=== PATIENT | male | born 1990 | race Caucasian/White ===

== ENCOUNTER 2021-03-21 03:47 | Day surgery (SDC) | payer MEDICAID ==
[~2021-03-21] VITALS: Ht 177.8 cm; Wt 78.9 kg
--- NOTE | 2021-03-21 04:25 | NUR ---
PT C/O ABDOMINAL PAIN SINCE 1 YEAR AGO. PT STATES IT HAPPENS MOST TIMES AT NIGHT. REPORTS SOME NAUSEA AND VOMITTING SOME NIGHTS NUT NOT TONIGHT. DENIES FEVER/ CHILL, CP, SOB ATTACHED TO [place], VSS. NADN. CHANGED INTO GOWN, BED IN LOW, CALL LIGHT ON LAP. RAILS ENGAGED.
[2021-03-21] MEDS ORDERED: MAALOX/HYOSCYAMINE/LIDOCAINE 45 ML BTL ONE (05:13)
--- NOTE | 2021-03-21 05:14 | NUR ---
PT OFF UNIT IN IMAGING
[2021-03-21] MEDS ORDERED: MAALOX/HYOSCYAMINE/LIDOCAINE 45 ML BTL PO ONE (05:30)
--- NOTE | 2021-03-21 05:55 | NUR ---
Note luca in EDM - 03/21/21 at 0555 by [email or web address] Patient is resting comfortably in bed. PT ON HER PHONE LAUGHING. Bed in lowest, rails engaged, call light on lap. Vital Signs within normal limits. TM.
[2021-03-21 06:10] LABS: BASOPHILS % (AUTO) 1 % (0-1); EOSINOPHILS % (AUTO) 2 % (1-7); LYMPHOCYTES % (AUTO) 31 % (22-44); MEAN CORPUSCULAR HEMOGLOBIN 32.1 pg (27.5-34.5); MEAN CORPUSCULAR HGB CONC 34.3 g/dL (33.2-36.2); MEAN PLATELET VOLUME 9.6 fL (7.4-10.4); MONOCYTES % (AUTO) 9 % (2-9); NEUTROPHILS % (AUTO) 58 % (42-75); PLATELET COUNT 254 x10^3/uL (130-400); RED BLOOD COUNT 4.99 x10^6/uL (4.38-5.82); RED CELL DISTRIBUTION WIDTH 14.3 % (9.4-14.8)
[2021-03-21 06:12] LABS: ALANINE AMINOTRANSFERASE 24 U/L (12-78); ALBUMIN 3.2 g/dL (3.4-5.0); ANION GAP 4 mmol/L (5-15); CALCIUM 8.3 mg/dL (8.5-10.1); CHLORIDE 111 mmol/L (98-107); CREATININE 0.86 mg/dL (0.7-1.3)
[2021-03-21 06:14] LABS: ALKALINE PHOSPHATASE 82 U/L (45-117); BILIRUBIN,TOTAL 0.3 mg/dL (0.2-1.0); TOTAL PROTEIN 7.1 g/dL (6.4-8.2)
--- NOTE | 2021-03-21 06:40 | NUR ---
LAST TIME PT ATE WAS 0030 THIS AM
[2021-03-21 06:41] VITALS: BP 146/94
[2021-03-21] MEDS ORDERED: MORPHINE SULFATE 4 MG/ML, 1ML ONE (06:46)
--- NOTE | 2021-03-21 06:48 | NUR ---
PT AMBULATED TO BATHROOM AND BACK WITH STEADY GAIT. ATTACHED TO MONITORS, VSS NADN. WCTM
--- NOTE | 2021-03-21 06:54 | NUR ---
GAVE REPORT TO FLORECITA DAVIES. TRANSFER OF CARE
[2021-03-21] MEDS ORDERED: SODIUM CHLORIDE 0.9% 1,000ML IVBOLUS ONE (07:00)
[2021-03-21] MEDS ORDERED: CEFOTETAN PMX 1GM/50ML 50 ML IVPB ONE (07:00)
[2021-03-21] MEDS ORDERED: morphine SULFATE 10 MG/ML, 1ML IVPush ONE (07:00)
[2021-03-21] MEDS ORDERED: BUPIVACAINE/PF 0.5% ONE (08:26)
[2021-03-21] MEDS ORDERED: EPINEPHRINE 1 MG/ML, 1ML ONE (08:26)
[2021-03-21] MEDS ORDERED: FENTANYL PF 100 MCG/2ML ONE (09:29)
[2021-03-21] MEDS ORDERED: MIDAZOLAM 1 MG/ML, 2ML ONE (09:29)
--- NOTE | 2021-03-21 09:35 | NUR ---
0845: Pt to go to OR, undressed and belongings in bag. NPO, Report to OR nurse.
[2021-03-21] MEDS ORDERED: DEXAMETHASONE 4 MG/ML, 5ML ONE (10:05)
[2021-03-21] MEDS ORDERED: NEOSTIGMINE 1 MG/ML, 10ML ONE (10:05)
[2021-03-21] MEDS ORDERED: CEFAZOLIN 1,000 MG ONE (10:05)
[2021-03-21] MEDS ORDERED: ROCURONIUM 10MG/ML,5ML ONE (10:05)
[2021-03-21] MEDS ORDERED: ONDANSETRON 2MG/ML, 2ML ONE (10:05)
[2021-03-21] MEDS ORDERED: MEPERIDINE/PF 50 MG/ML ONE (10:05)
[2021-03-21] MEDS ORDERED: PROPOFOL 10 MG/ML, 20ML ONE (10:05)
[2021-03-21] MEDS ORDERED: GLYCOPYRROLATE 0.2MG/1ML, 5ML ONE (10:05)
[2021-03-21] MEDS ORDERED: SUCCINYLCHOLINE 20 MG/ML, 10ML ONE (10:05)
[2021-03-21] MEDS ORDERED: BUPIVACAINE/PF-EPI 0.5% 1:200K INFIL ONE (10:09)
[2021-03-21] MEDS ORDERED: ACETAMINOPHEN 325 MG TABLET PO PRN (10:30)
[2021-03-21] MEDS ORDERED: LORazepam 2 MG/ML, 1ML IVPush PRN (10:30)
[2021-03-21] MEDS ORDERED: hydrALAzine 20 MG/ML, 1ML IV PRN (10:30)
[2021-03-21] MEDS ORDERED: METOPROLOL 1 MG/ML, 5ML IV PRN (10:30)
[2021-03-21] MEDS ORDERED: METHOCARBAMOL 1,000 MG in DEXTROSE 5% 100 ML IV PRN (10:30)
[2021-03-21] MEDS ORDERED: LABETALOL 5MG/ML, 20ML IV PRN (10:30)
[2021-03-21] MEDS ORDERED: HYDROmorphone 1 MG/ML, 1ML INJ IVPush PRN (10:30)
[2021-03-21] MEDS ORDERED: FENTANYL PF 100 MCG/2ML IV PRN (10:30)
[2021-03-21] MEDS ORDERED: PROMETHAZINE 25 MG/ML, 1ML IVPush PRN (10:30)
[2021-03-21] MEDS ORDERED: PROMETHAZINE 25 MG SUPP PR PRN (10:30)
[2021-03-21] MEDS ORDERED: ONDANSETRON 2MG/ML, 2ML IVPush PRN (10:30)
[2021-03-21] MEDS ORDERED: OXYcodone 5 MG/5 ML ORAL.SOL UDC PO PRN (10:30)
[2021-03-21] MEDS ORDERED: ALBUTEROL SULFATE 2.5 MG/3 ML NPPB PRN (10:30)
[2021-03-21] MEDS ORDERED: OXYC-302 PO (10:40)
[2021-03-21] MEDS ORDERED: OXYcodone 5 MG/5 ML ORAL.SOL UDC ONE (11:13)
[2021-03-21] MEDS ORDERED: ONDANSETRON 4 MG TABLET PO PRN (12:30)
[2021-03-21] MEDS ORDERED: OXYcodone/APAP 5/325MG TABLET PO PRN (12:30)
== END 2021-03-21 17:25 | disposition home or self-care (01) ==
LOC: ED 07:17 → EDIP 07:27 → OUT 07:27 → UNDOADMIN 07:27 → EDIP 11:50 → 4NW 11:50 → EDSTATUS 16:18 → UNDODISIN 17:25 → OUT 17:25
PROVIDERS: ATTEND Emergency Medicine
DX: K80.12 Calculus of gallbladder with acute and chronic cholecystitis without obstruction (principal); F17.210 Nicotine dependence, cigarettes, uncomplicated; Z72.89 Other problems related to lifestyle
CPT/HCPCS: 36415; 47562; 76700; 80053; 83690; 85025; 87635; 88304; 96365; 96375; 99285; J0171; J0330; J0690; J1100; J2175; J2250; J2270; J2405; J2704; J2710; J3010; J7030; G0378